=== PATIENT | female | born 1995 | race Caucasian/White ===

== ENCOUNTER 2019-11-24 23:31 | Emergency (ER) | payer MEDICAID ==
[~2019-11-24] VITALS: Ht 165.1 cm; Wt 52.3 kg
[2019-11-24 23:32] VITALS: BP 117/50
[2019-11-24] MEDS ORDERED: AMOX500C2 PO (23:38)
[2019-11-24] MEDS ORDERED: acetaminophen 325mg tablet PO ONE (23:40)
== END 2019-11-25 | disposition home or self-care (01) ==
LOC: ER 23:32
DX: K02.9 Dental caries, unspecified (principal); Z79.2 Long term (current) use of antibiotics
CPT/HCPCS: 99283